=== PATIENT | male | born 1990 | race Caucasian/White ===

== ENCOUNTER 2020-01-20 22:39 | Emergency (ER) | payer OTHER ==
[2020-01-20] MEDS ORDERED: METOCLOPRAMIDE HCL INJ/PF 10 MG/2 ML SDV IV ONE (23:51)
[2020-01-20] MEDS ORDERED: DIPHENHYDRAMINE HCL 50 MG/ML VIAL IV ONE (23:51)
[2020-01-20] MEDS ORDERED: NORMAL SALINE 1000 ML 1,000 ML IV ONE (23:51)
[2020-01-20] MEDS ORDERED: KETOROLAC TROMETHAMINE INJ/PF 30 MG/1 ML SDV IV ONE (23:51)
--- NOTE | 2020-01-21 00:01 | ER Document Report ---
ED General - General Chief Complaint: head,neck and back pain Stated Complaint: HEAD PAIN/VOMITING Time Seen by Provider: 01/20/20 23:14 Mode of Arrival: Ambulatory Information source: Patient TRAVEL OUTSIDE OF THE [place] IN LAST 30 DAYS: No - but patient has traveled to [place] and [facility]. - HPI Onset: Other - over the last few days Onset/Duration: Gradual Quality of pain: Achy Severity: Moderate Pain Level: 3 Associated symptoms: Chills, Fever - subjective, Headache, Nausea, Vomiting, Other - neck and back pain Exacerbated by: Other - headache is worse with Relieved by: Denies Similar symptoms previously: No Recently seen / treated by doctor: No Notes: 29 year old male with no significant PMH here for several days of a headache, subjective fevers, chills, back pain, and neck pain. The patient says he recently traveled to [facility]. The patient denies known sick contacts. The patient is in the [employer]. The patient denies cough, shortness of breath, sweats but the patient did have one episode of nausea/vomiting yesterday. The patient has had mild headaches in the past but this one seems much worse. The patient says he woke up 2 days ago with a headache and it gradually worsened. - Related Data Allergies/Adverse Reactions: No Known Allergies Allergy (Unverified 01/21/20 00:12) Past Medical History - General Information source: Patient - Social History Smoking Status: Current Some Day Smoker - Vapes Chew tobacco use (# tins/day): No Frequency of alcohol use: Occasional Drug Abuse: None Family History: Reviewed & Not Pertinent Patient has suicidal ideation: No Patient has homicidal ideation: No Review of Systems - Review of Systems Constitutional: Chills, Fever - subjective EENT: No symptoms reported Cardiovascular: No symptoms reported Respiratory: No symptoms reported Gastrointestinal: No symptoms reported Genitourinary: No symptoms reported Male Genitourinary: Testicular pain, Other - Testicular Swelling Musculoskeletal: No symptoms reported Skin: No symptoms reported Hematologic/Lymphatic: No symptoms reported Neurological/Psychological: No symptoms reported -: Yes All other systems reviewed and negative Physical Exam - Vital signs Vitals: Temp Pulse Resp BP Pulse Ox 99.5 F 83 16 132/70 H 96 01/20/20 23:11 01/20/20 23:11 01/20/20 23:11 01/20/20 23:11 01/20/20 23:11 - Notes Notes: GENERAL: Well-appearing, well-nourished and in no acute distress. HEAD: Atraumatic, normocephalic. EYES: Pupils equal round and reactive to light, extraocular movements intact, sclera anicteric, conjunctiva are normal. ENT: Nares patent, oropharynx clear without exudates. Moist mucous membranes. NECK: Normal range of motion, supple without lymphadenopathy or JVD. LUNGS: Breath sounds clear to auscultation bilaterally and equal. No wheezes rales or rhonchi. HEART: Regular rate and rhythm without murmurs, rubs or gallops. ABDOMEN: Soft, nontender, normoactive bowel sounds. No guarding, no rebound. No masses appreciated. EXTREMITIES: Normal range of motion, no pitting or edema. No clubbing or c yanosis. NEUROLOGICAL: No focal deficits. Normal speech, normal gait. No Kernigs or Burdzinski signs. PSYCH: Normal mood, normal affect. SKIN: Warm, Dry, normal turgor, no rashes or lesions noted. Course - Re-evaluation Re-evalutation: 01/21/20 03:04 The patient is here for two and half days of a headache (made worse with light a nd loud noise), mild neck and back pain, and subjective fevers. The patient has a temp of 99F in the ER. The patient works in the [employer] and he has been traveling (to [place] and . recently). Patient does not seem to be having signs of COVID19 (no high fevers, no cough, no shortness of breath, no runny nose). Patient unlikely has bacterial meningitis given he has had two and half days of symptoms and he has no neck stiffness, decreased ROM of his neck, and no physical exam findings of meningitis. Patient and I discussed pros and cons of performing an LP and the patient does not want to have an LP today. Patient would like to try outpatient treatment with Tylenol, Motrin, Benadryl, and Fioricet along with oral hydration. I think this is safe and reasonable plan. Even if patient had viral meningitis, management would be symptom control. Patients headaches came down from a 9 to a 5 with treatment in the ER with fluids, Reglan, Toradol, Benadryl. Patient given strict ER return instructions for high fevers, worsening headache, confusion, dizziness or if worse. Patient did not want to be tested for COVID19 and I agreed this was likely not necessary. - Vital Signs Vital signs: Temp Pulse Resp BP Pulse Ox 99.5 F 83 16 132/70 H 96 01/20/20 23:39 01/20/20 23:11 01/20/20 23:11 01/20/20 23:11 01/20/20 23:11 - Laboratory Result Diagrams: 01/21/20 00:30 01/20/20 00:30 Laboratory results interpreted by me: 01/20/20 01/21/20 00:30 00:30 RBC 4.20 L Hgb 13.1 L Hct 37.7 L Lymph % (Auto) 11.5 L Seg Neutrophils % 81.1 H Sodium 135.9 L Glucose 138 H - Diagnostic Test Radiology reviewed: Image reviewed, Reports reviewed Discharge - Discharge Clinical Impression: Headache Qualifiers: Headache type: unspecified Headache chronicity pattern: acute headache Intractability: not intractable Qualified Code(s): R51 - Headache Nausea & vomiting Qualifiers: Vomiting type: unspecified Vomiting Intractability: non-intractable Qualified Code(s): R11.2 - Nausea with vomiting, unspecified Condition: Stable Disposition: HOME, SELF-CARE Instructions: Headache ([facility]), Fever ([facility]) Additional Instructions: Use Tylenol and Motrin for headaches and fevers. You can also use Benadryl in combination with Tylenol and Motrin for headaches. You can also try the prescribed Fioricet for headaches. Follow up with a primary care doctor (either Dr. Bolden or the [facility]) if symptoms persist. Return to an ER for an uncontrolled headache, persistent fevers of 101F or higher or if you are worse in anyway. Prescriptions: Butalb/Acetaminophen/Caffeine [Fioricet (50-325-40 mg) Tablet] 1 tab PO Q6H #15 tab
--- NOTE | 2020-01-21 00:21 | RADIOLOGY REPORT (SQ) ---
EXAM DESCRIPTION: CT HEAD WITHOUT IV CONTRAST COMPLETED DATE/TME: 01/20/2020 23:50 CLINICAL HISTORY: 29 years, Male, Eval for cause of headache COMPARISON: None. TECHNIQUE: Noncontrast CT head was performed. Coronal and sagittal reformations were created. Images stored on PACS. All CT scanners at this facility use dose modulation, iterative reconstruction, and/or weight based dosing when appropriate to reduce radiation dose to as low as reasonably achievable (ALARA). [facility]: Dose Right [facility]: CareDose [facility]: Dose Right [facility]: Teradose 4D [facility]: [employer] LIMITATIONS: None. FINDINGS: Brain parenchyma is normal in attenuation. No acute intracranial hemorrhage, mass effect, or extra-axial fluid is seen. The ventricles and sulcal spaces are normal in size and configuration. Globes and orbits show no acute abnormality. Rounded opacity is noted about the inferior aspect of the left maxillary antrum. Remaining paranasal sinuses and mastoid air cells are clear. There are no depressed skull fractures. IMPRESSION: No acute intracranial abnormality. TECHNICAL DOCUMENTATION: Quality ID # [id number]: Final reports with documentation of one or more dose reduction techniques (e.g., Automated exposure control, adjustment of the mA and/or kV according to patient size, use of iterative reconstruction technique) copyright 2011 [employer]- All Rights Reserved
[2020-01-21 01:34] LABS: ABSOLUTE LYMPHOCYTES (AUTO) 0.8 10^3/uL (0.5-4.7); ABSOLUTE MONOCYTES (AUTO) 0.5 10^3/uL (0.1-1.4); ABSOLUTE NEUT (AUTO) 5.7 10^3/uL (1.7-8.2); BASOPHILS % (AUTO) 0.2 % (0-2); HEMATOCRIT 37.7 % (37.9-51.0); HEMOGLOBIN 13.1 g/dL (13.5-17.0); LYMPHOCYTES % (AUTO) 11.5 % (13-45); MEAN CORPUSCULAR HEMOGLOBIN 31.3 pg (27.0-33.4); MEAN CORPUSCULAR HGB CONC 34.8 g/dL (32.0-36.0); MEAN CORPUSCULAR VOLUME 90 fl (80-97); MONOCYTES % (AUTO) 7.2 % (3-13); PLATELET COUNT 187 10^3/uL (150-450); RED CELL DISTRIBUTION WIDTH 13.1 % (11.5-14.0); SEGMENTED NEUTROPHILS % (AUTO) 81.1 % (42-78); TOTAL CELLS COUNTED % (AUTO) 100 %; WHITE BLOOD COUNT 7.1 10^3/uL (4.0-10.5)
[2020-01-21 01:55] LABS: ANION GAP 9 (5-19); BLOOD UREA NITROGEN 11 mg/dL (7-20); CALCIUM 9.3 mg/dL (8.4-10.2); CARBON DIOXIDE 26 mmol/L (22-30); CHLORIDE 101 mmol/L (98-107); GLUCOSE 138 mg/dL (75-110); POTASSIUM 3.8 mmol/L (3.6-5.0)
[2020-01-21 02:35] LABS: A TYPE INFLUENZA AG NEGATIVE (NEGATIVE); B INFLUENZA AG NEGATIVE (NEGATIVE)
[2020-01-21] MEDS ORDERED: MORPHINE SULFATE 10 MG/ML INJ IV ONE (02:42)
[2020-01-21 03:00] LABS: APPEARANCE,URINE CLEAR; BILIRUBIN,URINE NEGATIVE (NEGATIVE); COLOR,URINE YELLOW; GLUCOSE, URINE NEGATIVE (NEGATIVE); KETONES,URINE TRACE mg/dL (NEGATIVE); LEUKOCYTE ESTERASE,URINE NEGATIVE (NEGATIVE); NITRITE,URINE NEGATIVE (NEGATIVE); PROTEIN,URINE NEGATIVE (NEGATIVE); URINE SPECIFIC GRAVITY 1.013; UROBILINOGEN,URINE NEGATIVE mg/dL (<2.0)
[2020-01-21 05:17] VITALS: BP 111/62
== END 2020-01-21 04:05 | disposition home or self-care (01) ==
LOC: ER 22:39
DX: R51 Headache (principal); R11.2 Nausea with vomiting, unspecified; M54.2 Cervicalgia; M54.9 Dorsalgia, unspecified; R50.9 Fever, unspecified; F17.290 Nicotine dependence, other tobacco product, uncomplicated
CPT/HCPCS: 99284; 96361; 96374; 96375; 36415; 85025; 80048; 81001; 87804; 70450; J1200; J1885; J2765; J2270; J7030